=== PATIENT | male | born 2000 | race Hispanic/Latino ===

== ENCOUNTER 2018-09-19 18:34 | Emergency (ER) | payer SELFPAY ==
[2018-09-19] MEDS ORDERED: NA BORATE/BORIC AC/H2O/NACL 120 ML OPHTH IRRIG SOLN ONE (18:45)
[2018-09-19] MEDS ORDERED: TETRACAINE HCL 0.5% 4 ML OPHTH SOLN ONE (18:45)
[2018-09-19] MEDS ORDERED: FLUORESCEIN SODIUM 1 STRIP STRIP ONE (18:45)
[2018-09-19] MEDS ORDERED: ERYTHROMYCIN BASE 0.5% OPHTH OINT 1 GM TUBE ONE (19:02)
== END 2018-09-19 19:22 | disposition home or self-care (01) ==
LOC: EDH 18:34
DX: S05.01XA Injury of conjunctiva and corneal abrasion without foreign body, right eye, initial encounter (principal); Z72.0 Tobacco use; X58.XXXA Exposure to other specified factors, initial encounter; Y93.89 Activity, other specified; Y92.89 Other specified places as the place of occurrence of the external cause; Y99.8 Other external cause status

== ENCOUNTER 2020-06-18 11:34 | Emergency (ER) | payer SELFPAY ==
[2020-06-18] MEDS ORDERED: TETANUS/DIPHTHERIA TOXOID [ADULT] 0.5 ML VIAL IM ONE (12:01)
[2020-06-18] MEDS ORDERED: AMOXICILLIN/POTASSIUM CLAV 875-125 TABLET PO ONE (12:01)
== END 2020-06-18 13:06 | disposition home or self-care (01) ==
LOC: EDH 11:34
DX: S91.052A Open bite, left ankle, initial encounter (principal); Z72.0 Tobacco use; W54.0XXA Bitten by dog, initial encounter; Y93.89 Activity, other specified; Y92.89 Other specified places as the place of occurrence of the external cause; Y99.8 Other external cause status
CPT/HCPCS: 73600; 90471; 90714

== ENCOUNTER 2021-03-31 15:17 | Emergency (ER) | payer BC, OTHER ==
[~2021-03-31] VITALS: Ht 175.3 cm; Wt 72.6 kg
[2021-03-31 16:08] LABS: BASOPHILS % (AUTO) 0.2 % (0.0-5.0); HEMATOCRIT 46.7 % (42-54); LYMPHOCYTES % (AUTO) 9.2 % (21.0-51.0); MEAN CORPUSCULAR HEMOGLOBIN 29.1 pg (27.0-33.0); MEAN CORPUSCULAR HGB CONC 33.6 g/dL (32.0-36.0); MEAN CORPUSCULAR VOLUME 86.6 fL (79-99); MONOCYTES % (AUTO) 5.8 % (3.0-13.0); NEUTROPHILS % (AUTO) 84.4 % (40.0-77.0); PLATELET COUNT (AUTO) 271 K/uL (130-400); RED BLOOD CELL COUNT(AUTO) 5.39 MIL/uL (4.50-6.20); WHITE BLOOD COUNT (AUTO) 16.8 K/uL (4.8-10.8)
[2021-03-31 16:17] LABS: POTASSIUM 3.1 mmol/L (3.5-5.1)
[2021-03-31 16:23] LABS: ALBUMIN 4.4 g/dL (3.5-5.0); BILIRUBIN,TOTAL 0.3 mg/dL (0.2-1.0); MAGNESIUM 2.5 mg/dL (1.80-2.40); TOTAL PROTEIN, SERUM 8.2 g/dL (6.0-8.3)
[2021-03-31] MEDS: ACETAMINOPHEN 325 MG TAB PO ONE (16:55)
[2021-03-31] MEDS: LORAZEPAM 2 MG/ML 1 ML VIAL IVP ONE (16:55)
[2021-03-31 17:03] LABS: AMPHET/METH SCREEN,URINE NEGATIVE (NEGATIVE); BARBITURATE SCREEN, URINE NEGATIVE (NEGATIVE); BENZODIAZEPINES SCREEN,URINE POSITIVE (NEGATIVE); CANNABINOID SCREEN,URINE POSITIVE (NEGATIVE); COCAINE SCREEN,URINE POSITIVE (NEGATIVE); OPIATE SCREEN,URINE NEGATIVE (NEGATIVE); PHENCYCLIDINE SCREEN,URINE NEGATIVE (NEGATIVE)
[2021-03-31] MEDS: KCL 20 MEQ ERTAB PO ONE (18:24)
[2021-03-31 20:47] VITALS: BP 120/80
== END 2021-03-31 20:48 | disposition home or self-care (01) ==
LOC: EDH 15:17
DX: R56.9 Unspecified convulsions (principal); M67.842 Other specified disorders of synovium, left hand; F19.10 Other psychoactive substance abuse, uncomplicated; M54.50 Low back pain, unspecified
CPT/HCPCS: 29125; 36415; 70450; 73130; 80053; 80305; 82550; 83735; 85025; 93005; 96374; 99284; J2060